=== PATIENT | female | born 1950 | race Caucasian/White ===

== ENCOUNTER → 2019-02-12 | Outpatient (CLI) | payer MEDICARE ==
[~2019-02-12] MED LIST: ALEVE ARTHRITI220 MG PO; AMARYL4 MG PO; AMBIEN 10MG10 MG PO; CALCIUM 6001 TA1 PO; DIOVAN/HCT 12.51 TA1 PO; GLUCOPHAGE1000 MG PO; LEVOTHYROXIN0.075 MG PO; LOW DOSE ASPIRI81 MG PO; MULTIPLE VITAMI1 CAP PO; NORCO 325 MG-51 TAB PO; PRAVACHOL 40MG40 MG PO; PRILOSEC 20MG20 MG PO; PROZAC20 MG PO; ROXICODONE 55 MG/TAB PO
== END ==
LOC: MC.RAD 08:41
DX: Z12.31 Encounter for screening mammogram for malignant neoplasm of breast (principal)

== ENCOUNTER → 2020-02-16 | Outpatient (CLI) | payer MEDICARE | LOC: MC.RAD 13:53 | DX: Z12.31 Encounter for screening mammogram for malignant neoplasm of breast (principal) ==

== ENCOUNTER → 2020-09-27 | Outpatient (CLI) | payer MEDICARE | LOC: MC.RAD 14:57 | DX: Z12.31 Encounter for screening mammogram for malignant neoplasm of breast (principal) ==

== ENCOUNTER → 2021-10-18 | Outpatient (CLI) | payer MEDICARE | LOC: MC.RAD 15:10 | DX: Z12.31 Encounter for screening mammogram for malignant neoplasm of breast (principal) ==

== ENCOUNTER 2023-10-12 11:17 | Emergency (ER) | payer MEDICARE ==
[~2023-10-12] VITALS: Ht 162.6 cm; Wt 72.7 kg
[2023-10-12 11:43] VITALS: BP 142/47; TEMP 98
[2023-10-12] MEDS ORDERED: CEPHALEXIN500 M1 PO (12:18)
[2023-10-12] MEDS ORDERED: Cephalexin 500 MG CAP PO ONE (12:30)
[2023-10-12 13:00] VITALS: PULSE 72
== END 2023-10-12 13:00 | disposition home or self-care (01) ==
LOC: COL.ER 11:17
DX: K61.1 Rectal abscess (principal)

== ENCOUNTER 2023-10-20 12:17 | Emergency (ER) | payer MEDICARE ==
[~2023-10-20] VITALS: Ht 165.1 cm; Wt 63.6 kg
[~2023-10-20 12:17] MED LIST changes: +CEPHALEXIN500 M1 PO
[2023-10-20 12:28] VITALS: TEMP 97.4
[2023-10-20] MEDS ORDERED: Ondansetron 4 MG/2 ML VIAL IV ONE (14:30)
[2023-10-20] MEDS ORDERED: NS 1,000 ML IV ONE (14:30)
[2023-10-20 14:45] LABS: ACETONE,SERUM NEGATIVE
[2023-10-20 14:56] LABS: ALANINE AMINOTRANSFERASE 19 U/L (0-55); ALBUMIN 3.5 g/dL (3.4-4.8); ALKALINE PHOSPHATASE 64 U/L (40-150); ANION GAP 16 mmol/L (7-16); AST,SGOT 17 U/L (5-34); BILIRUBIN,TOTAL 0.2 mg/dL (0.2-1.2); BLOOD UREA NITROGEN 16 mg/dL (10-20); CALCIUM 9.8 mg/dL (8.4-10.2); CHLORIDE 99 mEq/L (98-107); CREATININE, serum 1.45 mg/dL (0.57-1.11); GLUCOSE 137 mg/dL (70-99); LIPASE 11 U/L (8-78); MAGNESIUM 1.6 mg/dL (1.6-2.6); POTASSIUM 3.8 mEq/L (3.5-4.5); SODIUM 136 mEq/L (136-145); TOTAL PROTEIN 7.5 g/dl (6.2-8.1)
[2023-10-20 15:03] LABS: HEMOGLOBIN 13.8 g/dl (12.5-16.0); MEAN CELL VOLUME 96 fl (80.0-100.0); MEAN CORPUSCULAR HEMOGLOBIN 32 pg (27-31); MEAN CORPUSCULAR HGB CONC 33 g/dl (33.0-37.0); PLATELET COUNT 458 K/mm3 (130-400); RED BLOOD COUNT 4.36 M/mm3 (4.10-5.30); REDCELL DISTRIBUTION WIDTH-CV 13.9 % (11.5-14.5)
[2023-10-20 15:24] LABS: BAND 1 % (0-10); LYMPHOCYTE 7 % (20.0-51.0); NEUTROPHILS 82 % (42.0-75.2); PLATELET ESTIMATE INCREASED (NORMAL)
[2023-10-20 15:42] LABS: COLLECTION METHOD CLEAN CATCH
[2023-10-20 15:49] LABS: PH 6.5 (5.0-8.5); URINE APPEARANCE CLEAR (CLEAR/HAZY); URINE BLOOD NEGATIVE (NEGATIVE); URINE COLOR YELLOW (YELLOW); URINE GLUCOSE 3+ (NEGATIVE); URINE KETONE 1+ (NEGATIVE); URINE NITRATE NEGATIVE (NEGATIVE); URINE PROTEIN(semi-quant) NEGATIVE (NEGATIVE)
[2023-10-20 16:34] VITALS: BP 150/64; PULSE 71
== END 2023-10-20 16:37 | disposition home or self-care (01) ==
LOC: COL.ER 12:17
PROVIDERS: Physician Assistant
DX: F41.9 Anxiety disorder, unspecified (principal); E86.0 Dehydration; F32.A Depression, unspecified; Z79.899 Other long term (current) drug therapy
CPT/HCPCS: J2405; J7030